=== PATIENT | female | born 2000 ===

== ENCOUNTER → 2019-10-27 | Outpatient (CLI) | payer BC | LOC: LAB SHORT 14:15 → LAB EV 14:15 → EDSTATUS 14:39 | DX: R82.998 Other abnormal findings in urine (principal) | CPT/HCPCS: 87086 ==

== ENCOUNTER → 2022-01-23 | Outpatient (CLI) | payer BC | END | disposition home or self-care (01) | LOC: LAB 13:33 → LAB SHORT 13:33 | DX: N39.0 Urinary tract infection, site not specified (principal); R82.79 Other abnormal findings on microbiological examination of urine | CPT/HCPCS: 87086 ==

== ENCOUNTER → 2022-03-12 | Outpatient (CLI) | payer BC | END | disposition home or self-care (01) | LOC: LAB 16:48 → LAB SHORT 16:48 | PROVIDERS: Obstetrics & Gynecology | DX: Z01.419 Encounter for gynecological examination (general) (routine) without abnormal findings (principal) | CPT/HCPCS: G0123 ==

== ENCOUNTER 2024-09-30 02:17 | Outpatient (CLI) | payer SELFPAY ==
[2024-09-30 02:51] VITALS: BP 125/80
[2024-09-30] MEDS ORDERED: Ondansetron HCl 2 MG / ML 2ML Vial IV ONE (03:40)
[2024-09-30] MEDS ORDERED: OxyCODONE HCL 5 MG TAB PO ONE ×2 (03:40→05:05)
[2024-09-30] MEDS ORDERED: Lactated Ringer's 1,000 ML IV ONE (03:40)
[2024-09-30 04:14] LABS: Source, Urine Clean Catch
[2024-09-30 04:23] LABS: Appearance, Urine Clear (Clear); Bilirubin, Urine Neg (Neg); Blood, Urine 5+ (Neg); Color, Urine Yellow (P-Yellow); Glucose Qualitative, Urine Neg (Neg); Ketones, Urine 4+ (Neg); Leukocyte Esterase, Urine Neg (Neg); Nitrite, Urine Neg (Neg); Protein, Urine 2+ (Neg); Specific Gravity, Urine 1.025 (1.003-1.022); Urobilinogen, Urine NORM (Normal)
[2024-09-30 04:37] VITALS: BP 129/75
[2024-09-30 04:38] LABS: Bacteria Many /hpf; Mucus Light (0-Heavy); Red Blood Cells, Urine 25-50 /hpf (0-2); Squamous Epithelial Cells Many /hpf (Few)
[2024-09-30] MEDS ORDERED: Tamsulosin HCl 0.4 MG Cap PO ONE (05:05)
[2024-09-30] MEDS ORDERED: Lactated Ringer's 1,000 ML IV SCH (05:05)
[2024-09-30 06:54] VITALS: BP 123/78
== END 2024-09-30 07:00 | disposition home or self-care (01) ==
LOC: OBS 02:17 → ER 02:17 → BC 02:17 → OBS 02:17 → EDSTATUS 02:56 → BC 07:00
PROVIDERS: Family Medicine
DX: O60.03 Preterm labor without delivery, third trimester (principal); Z3A.31 31 weeks gestation of pregnancy
CPT/HCPCS: 36415; 59025; 81001; 81003; 87086; 99213; A9270; J7120

== ENCOUNTER 2024-12-08 15:28 | Inpatient (IN) | payer OTHER ==
[2024-12-08] VITALS (17 sets, daily range): BP systolic 134–196; BP diastolic 74–120
[~2024-12-08] VITALS: Ht 154.9 cm; Wt 90.7 kg
[~2024-12-08 15:28] MED LIST: ACET500 PO; IBUP800 PO; LABE100 PO; OXAYDO5 M1 PO; PRENATAL TABLE1 EAC2
[2024-12-08] MEDS ORDERED: Magnesium Sul 4 GM/Water100 ML 100 ML IV ONE (15:50)
[2024-12-08] MEDS ORDERED: Labetalol HCL 5 MG/ML 4ML Injection (Single Dose) IV ONE (15:50)
[2024-12-08] MEDS ORDERED: Labetalol HCL 5 MG/ML 4ML Injection (Single Dose) IV PRN ×2 (15:50)
[2024-12-08] MEDS ORDERED: Labetalol HCL 5 MG/ML 4ML Injection (Single Dose) ONE (15:58)
[2024-12-08 16:13] LABS: BASOPHILS ABSOLUTE AUTO 0.07 K/mm3 (0.00-0.23); BASOPHILS PERCENT AUTO 1 % (0-2); EOSINOPHILS ABSOLUTE AUTO 0.33 K/mm3 (0.00-0.68); EOSINOPHILS PERCENT AUTO 3 % (0-6); Hematocrit 33.1 % (33.0-51.0); Hemoglobin 11.1 g/dL (11.5-16.0); IMMATURE GRAN ABSOLUTE AUTO 0.11 K/mm3 (0.00-0.10); IMMATURE GRAN PERCENT AUTO 1 % (0-1); LYMPHOCYTES ABSOLUTE AUTO 2.81 K/mm3 (0.84-5.20); LYMPHOCYTES PERCENT AUTO 23 % (21-46); MONOCYTES ABSOLUTE AUTO 0.80 K/mm3 (0.16-1.47); MONOCYTES PERCENT AUTO 6 % (4-13); Mean Corpuscular HGB Conc 33.5 g/dL (31.5-36.5); Mean Corpuscular Volume 90 fL (80-100); NEUTROPHILS ABSOLUTE AUTO 8.31 K/mm3 (1.96-9.15); NEUTROPHILS PERCENT AUTO 67 % (41-73); NRBC ABSOLUTE 0.00 K/mm3 (0.00-0.02); NRBC Auto 0.0 /100 WBC (0.0-0.2); Platelet Count 345 K/mm3 (150-400); RDW Coefficient Variation 14.5 % (11.7-14.2); RDW Standard Deviation 47.6 fL (35.1-46.3)
[2024-12-08 16:41] LABS: Alanine Aminotransfer (ALT/SGP 27.0 U/L (12-78); Albumin, Blood 2.6 g/dL (3.4-5.0); Albumin/Globulin Ratio 0.6 (0.8-1.8); Anion Gap 10.0 mmol/L (3-11); Aspartate Aminotrans (AST/SGOT 31.0 U/L (12-37); Bilirubin, Total 0.3 mg/dL (0.1-1.0); Blood Urea Nitrogen 12.0 mg/dL (8-24); CO2, Blood 24.0 mmol/L (21-32); Calcium, Blood 9.2 mg/dL (8.5-10.1); Chloride, Blood 107.0 mmol/L (98-108); Creatinine, Blood 0.54 mg/dL (0.40-1.00); Globulin, Blood 4.4 g/dL (2.2-4.0); Glucose, Blood 74.0 mg/dL (70-99); Potassium, Blood 3.7 mmol/L (3.5-5.5); Sodium, Blood 137.0 mmol/L (136-145); Total Protein, Blood 7.0 g/dL (6.4-8.2)
[2024-12-08] MEDS ORDERED: Enoxaparin 40 MG/0.4 ML SYR SC SCH (17:00)
[2024-12-09] VITALS (17 sets, daily range): BP systolic 121–152; BP diastolic 72–92
[2024-12-09 06:44] LABS: BASOPHILS ABSOLUTE AUTO 0.06 K/mm3 (0.00-0.23); BASOPHILS PERCENT AUTO 1 % (0-2); EOSINOPHILS ABSOLUTE AUTO 0.34 K/mm3 (0.00-0.68); EOSINOPHILS PERCENT AUTO 3 % (0-6); Hematocrit 33.9 % (33.0-51.0); Hemoglobin 11.0 g/dL (11.5-16.0); IMMATURE GRAN ABSOLUTE AUTO 0.09 K/mm3 (0.00-0.10); IMMATURE GRAN PERCENT AUTO 1 % (0-1); LYMPHOCYTES ABSOLUTE AUTO 2.77 K/mm3 (0.84-5.20); LYMPHOCYTES PERCENT AUTO 25 % (21-46); MONOCYTES ABSOLUTE AUTO 0.85 K/mm3 (0.16-1.47); MONOCYTES PERCENT AUTO 8 % (4-13); Mean Corpuscular HGB Conc 32.4 g/dL (31.5-36.5); Mean Corpuscular Volume 91 fL (80-100); NEUTROPHILS ABSOLUTE AUTO 7.02 K/mm3 (1.96-9.15); NEUTROPHILS PERCENT AUTO 63 % (41-73); NRBC ABSOLUTE 0.00 K/mm3 (0.00-0.02); NRBC Auto 0.0 /100 WBC (0.0-0.2); Platelet Count 326 K/mm3 (150-400); RDW Coefficient Variation 14.4 % (11.7-14.2); RDW Standard Deviation 48.1 fL (35.1-46.3)
--- NOTE | 2024-12-09 06:46 | NUR ---
FOCUS: SLURRED SPEECH/ ? MAG TOXICITY D: PTS PARTNER CALLED [employer] INTO ROOM. REPORTED THAT LARISA SLURRED A FEW OF HER WORDS AFTER GETTING BACK INTO BED. LABS WERE JUST DRAWN PRIOR TO AMBULATION A: O/E: VSS. NO BLURRY VISION, HEADACHE, N+V. DENIES SOB, SP02 >95%, RR 16 AND WNL, DENIES CHEST PAIN. NO FACIAL DROOP. NO DRIFTING OF UPPER EXTREMITIES. STRENGTH TO UPPER AND LOWER EXTREMITIES STRONG AND EQUAL. DTR +2 TO UPPER EXTREMITIES, +1 TO LOWER EXTREMITIES. NO MORE CLONUS PRESENT. NO SLURRED SPEECH NOTED BY KNOT BORER DURING OUR INTERACTION. PT BELIEVES ITS BECAUSE SHE JUST WOKE UP, HAD LABS DRAWN, AND GOT UP TOO QUICKLY. IV LR @ 75 ML/HR, MAG @ 50 ML/HR. URINE OUTPUT ADEQAUTE. R: STAT MAG SERUM LEVELS ADDED TO LAB DRAW THAT WAS COLLECTED EARLIER THIS MORNING. MRP UPDATED OF ABOVE P: MAINTAIN INFUSION @ CURRENT RATE. MRP WILL AWAIT LAB RESULTS. NO FURTHER ORDERS REC'D.
[2024-12-09 07:04] LABS: Alanine Aminotransfer (ALT/SGP 31.0 U/L (12-78); Albumin, Blood 2.6 g/dL (3.4-5.0); Albumin/Globulin Ratio 0.6 (0.8-1.8); Anion Gap 9.0 mmol/L (3-11); Aspartate Aminotrans (AST/SGOT 35.0 U/L (12-37); Bilirubin, Total 0.3 mg/dL (0.1-1.0); Blood Urea Nitrogen 8.0 mg/dL (8-24); CO2, Blood 26.0 mmol/L (21-32); Calcium, Blood 7.3 mg/dL (8.5-10.1); Chloride, Blood 105.0 mmol/L (98-108); Creatinine, Blood 0.62 mg/dL (0.40-1.00); Globulin, Blood 4.2 g/dL (2.2-4.0); Glucose, Blood 81.0 mg/dL (70-99); Potassium, Blood 3.6 mmol/L (3.5-5.5); Sodium, Blood 136.0 mmol/L (136-145); Total Protein, Blood 6.8 g/dL (6.4-8.2)
--- NOTE | 2024-12-09 07:05 | NUR ---
FOCUS: PT STATUS D: NO SLURRED SPEECH NOTED. NO SOB, BLURRY VISION NOTED BY PATIENT. REPORTS THAT WHEN SHE TURNS HER HEAD, SHE DOES FEEL THAT HER "PERIPHERAL VISION IS A LITTLE SLOW", WHICH DR. MONTERO DID ADVISE HER THAT THIS MAY BE A SIDE EFFECT OF THE MAGNESIUM. RR EASY AND REGULAR. SP02 @ 98%. NO FACIAL DROOP. PENDING LABS
[2024-12-09] MEDS ORDERED: Labetalol HCL 5 MG/ML 4ML Injection (Single Dose) IV PRN (07:20)
--- NOTE | 2024-12-09 07:46 | NUR ---
CRITICAL LAB VALUE OF MAGNESIUM 6.2
--- NOTE | 2024-12-09 17:09 | NUR ---
magnesium shut off biox off, patient sleeping
[2024-12-10 00:28] VITALS: BP 127/63
[2024-12-10 04:34] VITALS: BP 137/74
--- NOTE | 2024-12-10 10:01 | NUR ---
FOLLOW UP APPOINTMENT SCHEDULED WITH SANDY JALLOH ON Saturday12/15/24 AT 1345
[2024-12-10 10:11] VITALS: BP 137/88
[2024-12-10 10:16] VITALS: BP 133/79
== END 2024-12-10 11:25 | disposition home or self-care (01) | DRG 776 ==
LOC: OBS 15:28 → BC 15:29 → OBS 15:37 → BC 15:38
PROVIDERS: ADMIT Family Medicine
DX: O14.95 Unspecified pre-eclampsia, complicating the puerperium (principal); Z98.891 History of uterine scar from previous surgery
CPT/HCPCS: 36415; 80053; 83735; 85025; 86850; 86870; 86900; 86901; 86922; A9270; J1650; J3475; J7120